=== PATIENT | female | born 1965 | race Caucasian/White ===

== ENCOUNTER 2021-09-22 12:07 | Emergency (ER) | payer OTHER ==
[~2021-09-22] VITALS: Ht 157.5 cm; Wt 106.1 kg
[2021-09-22] MEDS ORDERED: NORVASC10 MG PO (12:31)
[2021-09-22] MEDS ORDERED: TESSALON PERLE100 MG PO (13:06)
[2021-09-22] MEDS ORDERED: AUGMENTIN 875-1 EACH PO (13:06)
[2021-09-22] MEDS ORDERED: ZOFRAN ODT4 MG DISSOLVE (13:06)
[2021-09-22 13:15] VITALS: BP 128/80
== END 2021-09-22 13:16 | disposition home or self-care (01) ==
LOC: M.ERS 12:07
DX: J18.9 Pneumonia, unspecified organism (principal); Z20.822 Contact with and (suspected) exposure to COVID-19; K21.9 Gastro-esophageal reflux disease without esophagitis; G43.909 Migraine, unspecified, not intractable, without status migrainosus; Z79.899 Other long term (current) drug therapy

== ENCOUNTER 2021-09-25 09:20 | Emergency (ER) | payer OTHER ==
[~2021-09-25] VITALS: Ht 157.5 cm; Wt 106.1 kg
[~2021-09-25 09:20] MED LIST: AUGMENTIN 875-1 EACH PO; NORVASC10 MG PO; TESSALON PERLE100 MG PO; ZOFRAN ODT4 MG DISSOLVE
[2021-09-25] MEDS ORDERED: VENTOLIN HFA 1818 GM INH (09:59)
[2021-09-25] MEDS ORDERED: PREDNISONE 20 M20 M1 PO (09:59)
[2021-09-25 10:15] VITALS: BP 132/72
== END 2021-09-25 10:15 | disposition home or self-care (01) ==
LOC: M.ERS 09:20
DX: J40 Bronchitis, not specified as acute or chronic (principal); K21.9 Gastro-esophageal reflux disease without esophagitis; G43.909 Migraine, unspecified, not intractable, without status migrainosus; Z79.899 Other long term (current) drug therapy